=== PATIENT | female | born 1945 | race Caucasian/White ===

== ENCOUNTER 2021-11-12 21:51 | Inpatient (IN) ==
[2021-11-12 23:28] LABS: Basophils % 0.1 % (0.0-0.8); Hematocrit 31.8 VOL% (35.7-47.0); Hemoglobin 9.6 GM/DL (12.0-16.0); Immature Granulocytes Absolute 0.15 #; Lymphocytes # 0.3 10*3/uL (1.4-4.0); Lymphocytes % 1.6 % (21.3-54.2); Mean Corpuscular HGB Conc 30.2 GM/DL (32-36); Mean Corpuscular Volume 89.6 FL (87-102); Mean Platelet Volume 10.9 FL (9.6-12.0); Monocytes % 3.7 % (1.7-12.7); Neutrophils % 93.6 % (38.7-73.9); Platelet Count 272 T/CUMM (130-400); Red Blood Count 3.55 MC/CUMM (3.8-5.5); Red Cell Distribution Width 15.8 % (9.3-17.3); White Blood Count 15.8 T/CUMM (4-12)
[2021-11-12 23:47] LABS: Albumin 2.2 G/DL (3.4-5.0); Bilirubin,Total 0.7 MG/DL (0.20-1.00); Calcium 9.3 MG/DL (8.5-10.1); Osmolality,Calculated 282.4 MOS/KG (273-304); Potassium 3.5 MMOL/L (3.5-5.1); Total Protein 6.7 G/DL (6.4-8.2)
[2021-11-13] MEDS ORDERED: NOREPINEPHRINE 4 MG/4 ML VIAL IV ONE (00:01)
[2021-11-13] MEDS ORDERED: NOREPINEPHRINE 4 MG in SODIUM CHLORIDE 0.9% 246 ML IV PRN (00:30)
[2021-11-13 00:58] LABS: Lymphocytes 4 % (20-55); Segmented Neutrophils 95 % (50-85); Total Cells Counted 100
[2021-11-13 01:00] LABS: Platelet Estimate Increased
[2021-11-13 01:01] LABS: Anisocytosis 1+; Polychromasia 1+
[2021-11-13] MEDS ORDERED: ALBUTEROL 2.5 MG/3 ML NEB RESP TX PRN (01:06)
[2021-11-13] MEDS ORDERED: MIDAZOLAM 100 MG in SODIUM CHLORIDE 0.9% 80 ML IV PRN (01:08)
[2021-11-13] MEDS ORDERED: NOREPINEPHRINE 8 MG in SODIUM CHLORIDE 0.9% 242 ML IV PRN (01:08)
[2021-11-13] MEDS ORDERED: NICOTINE 21 MG/24 HR PATCH TRANSDERM PRN (01:08)
[2021-11-13] MEDS ORDERED: ONDANSETRON 4 MG/2 ML VIAL IV PRN (01:08)
[2021-11-13] MEDS ORDERED: PANTOPRAZOLE 40 MG VIAL IV SCH (01:30)
[2021-11-13 01:55] LABS: Risk Ratio 2.44; VLDL Cholesterol 14.8 MG/DL
[2021-11-13] MEDS ORDERED: SODIUM CHLORIDE 0.9% 1,000 ML IV SCH (02:00)
[2021-11-13] MEDS ORDERED: LORazepam 2 MG/1 ML VIAL IV STA (02:02)
[2021-11-13 02:08] LABS: ABG Base Excess 6.8 MMOL/L (-2.5-2.5); ABG HCO3 30.6 MMOL/L (20-26); ABG Oxygen Saturation 99.4 % (95-100); ABG PCO2 43.4 MM HG (35-48); ABG PH 7.465 (7.35-7.45); ABG TCO2 28.4 MMOL/L (23-27)
[2021-11-13] MEDS ORDERED: cefTRIAXone 1,000 MG in SODIUM CHLORIDE 0.9% 100 ML IV SCH (02:30)
[2021-11-13] MEDS ORDERED: ENOXAPARIN 40 MG/0.4 ML SYRINGE SUBCUT SCH (03:00)
[2021-11-13] MEDS ORDERED: LEVOFLOXACIN INJ 750 MG/150 ML PREMIX IV SCH (03:00)
[2021-11-13 03:54] LABS: ABG Base Excess 9.1 MMOL/L (-2.5-2.5); ABG HCO3 32.9 MMOL/L (20-26); ABG Oxygen Saturation 99.5 % (95-100); ABG PCO2 44.9 MM HG (35-48); ABG PH 7.483 (7.35-7.45); ABG TCO2 30.4 MMOL/L (23-27)
[2021-11-13 03:56] LABS: Basophils % 0.1 % (0.0-0.8); Hematocrit 30.8 VOL% (35.7-47.0); Hemoglobin 9.7 GM/DL (12.0-16.0); Immature Granulocytes % 0.8 %; Immature Granulocytes Absolute 0.13 #; Lymphocytes # 0.4 10*3/uL (1.4-4.0); Lymphocytes % 2.3 % (21.3-54.2); Mean Corpuscular HGB Conc 31.5 GM/DL (32-36); Mean Corpuscular Volume 87.3 FL (87-102); Mean Platelet Volume 9.8 FL (9.6-12.0); Monocytes % 3.3 % (1.7-12.7); Neutrophils % 93.5 % (38.7-73.9); Platelet Count 263 T/CUMM (130-400); Red Blood Count 3.53 MC/CUMM (3.8-5.5); Red Cell Distribution Width 15.7 % (9.3-17.3)
[2021-11-13 04:17] LABS: Band Neutrophils 2 % (0-10); Hypochromia 1+; Lymphocytes 1 % (20-55); Microcytosis 1+; Platelet Estimate Adequate; Segmented Neutrophils 95 % (50-85); Total Cells Counted 100
[2021-11-13 04:20] LABS: Albumin 2.1 G/DL (3.4-5.0); Bilirubin,Total 0.6 MG/DL (0.20-1.00); Calcium 9.4 MG/DL (8.5-10.1); Osmolality,Calculated 285.3 MOS/KG (273-304); Potassium 3.1 MMOL/L (3.5-5.1); Total Protein 6.7 G/DL (6.4-8.2)
[2021-11-13] MEDS ORDERED: INFLUENZA VIRUS VACCINE 0.5 ML SYRINGE IM ONE (05:38)
[2021-11-13 07:00] VITALS: BP 144/64
[2021-11-13 08:29] LABS: Bilirubin,Urine Negative (Negative); Blood, Urine Small mg/dL (Negative); Glucose,Urine (UA) Negative (Negative); Ketones,Urine 5 mg/dL (Negative); Mucus,Urine Occasional /LPF (Occasional); Nitrite,Urine Negative (Negative); Protein,Urine 30 MG/DL; RBC,Urine 1 /HPF (0-4); Urine Appearance CLEAR (Clear); Urine Color Yellow (Yellow); Urine Specific Gravity 1.013 (1.001-1.035); Urine Urobilinogen < 2.0 EU/DL (<2.0)
[2021-11-13] MEDS ORDERED: POTASSIUM BICARB EFFERVESCENT 20 MEQ TAB.EFF PER TUBE ONE (09:00)
[2021-11-13] MEDS: ALBUTEROL/IPRATROPIUM 3 ML NEB RESP TX SCH ×2 (13:54→15:33)
[2021-11-13] MEDS ORDERED: fentaNYL 100 MCG/2 ML VIAL IV PRN (14:28)
== END 2021-11-13 14:53 | disposition expired | DRG 208 ==
LOC: EDUNIT# → EDBD → N.ED 21:51 → N.EDINP 11-13 01:06 → N.ICU 11-13 03:10
PROVIDERS: ADMIT Internal Medicine; ATTEND Internal Medicine